=== PATIENT | male | born 1990 | race Caucasian/White ===

== ENCOUNTER 2020-02-24 17:13 | Emergency (ER) | payer OTHER ==
[~2020-02-24] VITALS: Ht 188 cm; Wt 90.7 kg
[2020-02-24 17:17] VITALS: BP 138/90; Ht 188 cm; Wt 90.7 kg
== END 2020-02-24 17:31 | disposition left against medical advice (07) ==
LOC: ED 17:13
DX: Z53.21 Procedure and treatment not carried out due to patient leaving prior to being seen by health care provider (principal)

== ENCOUNTER 2020-02-24 17:40 | Emergency (ER) | payer OTHER ==
[~2020-02-24] VITALS: Ht 185.4 cm; Wt 95.3 kg
[2020-02-24 17:55] VITALS: BP 133/89; Ht 185.4 cm; Wt 95.3 kg
[2020-02-24 18:55] LABS: BASOPHIL % 1.3 % (0-2); PLATELET COUNT 233 x10^3mcL (130-400); RED CELL DISTRIBUTION WIDTH 13.4 % (11.5-14.5)
[2020-02-24 18:57] LABS: CALCIUM 9.4 mg/dL (8.5-10.1); CARBON DIOXIDE 26.9 mmol/L (21-32); CHLORIDE SERUM 106 mmol/L (98-107); CREATININE SERUM 0.8 mg/dL (0.7-1.3); GFR1 > 60 mL/min; GLUCOSE SERUM 101 mg/dL (74-106); POTASSIUM SERUM 3.8 mmol/L (3.5-5.1); SODIUM SERUM 143 mmol/L (136-145)
[2020-02-24 19:01] LABS: ALBUMIN 4.1 g/dL (3.4-5.0); ALKALINE PHOSPHATASE 60 U/L (46-116); ALT/SGPT 43 U/L (16-63); AST/SGOT 27 U/L (15-37); BILIRUBIN TOTAL 0.4 mg/dL (0.20-1.00); LIPASE 97 IU/L (73-393); TOTAL PROTEIN, SERUM 7.6 g/dL (6.4-8.2)
== END 2020-02-24 19:01 | disposition left against medical advice (07) ==
LOC: ED 17:40
PROVIDERS: Emergency Medicine
DX: F10.129 Alcohol abuse with intoxication, unspecified (principal); Z88.6 Allergy status to analgesic agent
CPT/HCPCS: G0480; J2405; J3490; J7030